=== PATIENT | male | born 1945 | race Caucasian/White ===

== ENCOUNTER → 2016-07-29 | Outpatient (CLI) | payer MEDICARE ==
--- NOTE | 2016-07-29 14:41 | REP ---
Whole body radionuclide bone scan: History: Question metastasis. Left eighth rib lesion. Comparison radiographs July 22, 2016. Technique: 22.0 mCi technetium 99m MDP is injected and standard whole body bone scan imaging is acquired. Scintigraphic findings: There is a normal distribution of skeletal tracer with uptake in bilateral kidneys and in the urinary bladder. Osteoarthritic uptake is seen in the acromioclavicular joints bilaterally as well as in the right knee. There is no abnormal rib uptake on either side. Mild arthritic uptake is seen in the left hip as well. There is an area of increased uptake in the at the angle of mandible on the left side and in the left zygomatic arch region. There is a history of recent mandibular tooth extraction on the left. 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 Impression: No abnormal rib uptake is seen. There is some osteoarthritic uptake. There is an area of increased uptake in the left zygomatic arch region of uncertain significance. Maxillofacial CT scanning could provide additional information. Otherwise no evidence of skeletal metastatic disease. Signed by Jae Gonzalez MD 07/29/2016 03:35 P
== END ==
LOC: M RAD 09:55
DX: R93.7 Abnormal findings on diagnostic imaging of other parts of musculoskeletal system (principal); Z86.008 Personal history of in-situ neoplasm of other site
CPT/HCPCS: 78306; A9503

== ENCOUNTER → 2016-08-30 | Outpatient (REF) | payer MEDICARE | LOC: M LAB REF 16:37 | DX: Z01.89 Encounter for other specified special examinations (principal) ==

== ENCOUNTER 2016-11-15 05:07 | Emergency (ER) | payer MEDICARE ==
[~2016-11-15] VITALS: Ht 175.3 cm; Wt 83.5 kg
[2016-11-15] MEDS ORDERED: SERT-155 PO (05:20)
[2016-11-15] MEDS ORDERED: VALS1TAB48 PO (05:20)
[2016-11-15] MEDS ORDERED: ROSU20TA PO (05:20)
[2016-11-15] MEDS ORDERED: METF500T PO (05:20)
[2016-11-15] MEDS ORDERED: AMLO5TAB2 PO (05:20)
[2016-11-15] MEDS ORDERED: dexameTHASONE 20 MG/5 ML VIAL (J1100) IV ONE (05:45)
[2016-11-15] MEDS ORDERED: IPRATROPIUM 0.5MG/ALBUTEROL 2.5MG INH SOL UD 3ML (DUONEB)(J7620) NEB ONE (05:45)
[2016-11-15] MEDS ORDERED: PRED20TA PO (06:09)
[2016-11-15 06:24] VITALS: BP 138/85
--- NOTE | 2016-11-15 09:19 | REP ---
CHEST, TWO VIEWS: COMPARISON: 01/05/2015. There is no evidence of acute infiltrate. The heart is normal in size. There is tortuosity of the thoracic aorta. The mediastinal silhouette is unchanged. Right basilar nodular opacity is stable. There are mild degenerative changes of the spine. IMPRESSION: No acute infiltrate. Signed by Remberto Conner MD 11/15/2016 05:16 P
== END 2016-11-15 06:26 | disposition home or self-care (01) ==
LOC: M ED 06:01
DX: J20.9 Acute bronchitis, unspecified (principal); E11.9 Type 2 diabetes mellitus without complications; I10 Essential (primary) hypertension; M54.9 Dorsalgia, unspecified; F41.9 Anxiety disorder, unspecified; Z87.891 Personal history of nicotine dependence; Z79.84 Long term (current) use of oral hypoglycemic drugs; Z79.899 Other long term (current) drug therapy; Z79.52 Long term (current) use of systemic steroids; Z91.018 Allergy to other foods
CPT/HCPCS: 71020; 96374; 99282; J1100

== ENCOUNTER → 2017-03-03 | Outpatient (CLI) | payer MEDICARE ==
[~2017-03-03] MED LIST: AMLO5TAB2 PO; CRES20TA; E-Z-GAS II EFFERVESCENT PACKET (SODIUM BICARB./CITRIC ACID/SIMETHICONE) As Ordered ONE; E-Z-HD 98% w/w 340GM SUSP BTL As Ordered ONE; E-Z-PAQUE 96% w/w SUSP 176GM BTL As Ordered ONE; METF500T13 PO; PRED20TA PO; ROSU20TA PO; SERT-155 PO; VALS1TAB48 PO
--- NOTE | 2017-03-03 19:13 | REP ---
ESOPHAGRAM: The procedure was performed by JENNA Reynolds under the direct supervision of Dr. Conner. All imaging was reviewed with Dr. Conner prior to dictation. The patient was able ingest liquid barium and air in a quantity sufficient to produce a double contrast examination. The oral and pharyngeal stages of deglutition were within normal limits. Esophageal transport was prompt and efficient. There was no evidence of esophagitis, stricture, mucosa ring or hiatal hernia. Gastroesophageal reflux was not observed on exam. IMPRESSION: Unremarkable double contrast esophagram. Fluoroscopy time 2 minutes and 4 seconds. Reviewed by JENNA Yang 03/04/2017 08:12 AEdited and Signed by Remberto Conner MD 03/04/2017 04:33 P
== END ==
LOC: M RAD 08:30
PROVIDERS: ATTEND Specialist
DX: K21.9 Gastro-esophageal reflux disease without esophagitis (principal)

== ENCOUNTER 2017-04-10 12:24 | Emergency (ER) | payer MEDICARE ==
[~2017-04-10] VITALS: Ht 175.3 cm; Wt 82.7 kg
[~2017-04-10 12:24] MED LIST changes: -CRES20TA; -E-Z-GAS II EFFERVESCENT PACKET (SODIUM BICARB./CITRIC ACID/SIMETHICONE) As Ordered ONE; -E-Z-HD 98% w/w 340GM SUSP BTL As Ordered ONE; -E-Z-PAQUE 96% w/w SUSP 176GM BTL As Ordered ONE
[2017-04-10] MEDS ORDERED: CRES20TA (12:42)
--- NOTE | 2017-04-10 14:09 | REP ---
Right foot four views: Comparisons 05/19/2003. There is joint space narrowing of the PIP and DIP articulations of the great toe MTP articulation compatible with articular cartilage atrophy as a degenerative change. There is no acute fracture. No dislocation. Diffuse demineralization is again identified. There are calcaneal plantar and Achilles spurs. Impression: No fracture or dislocation. 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 Signed by Remberto Cedeno MD 04/10/2017 02:01 P
[2017-04-10 14:27] VITALS: BP 162/76
== END 2017-04-10 14:38 | disposition home or self-care (01) ==
LOC: M ED 12:24
DX: M19.071 Primary osteoarthritis, right ankle and foot (principal); M77.31 Calcaneal spur, right foot; Z87.891 Personal history of nicotine dependence; Z79.899 Other long term (current) drug therapy; Z91.018 Allergy to other foods

== ENCOUNTER 2018-02-01 14:37 | Emergency (ER) | payer MEDICARE | END 2018-02-01 17:38 | disposition home or self-care (01) | LOC: M ED 14:37 | DX: J20.9 Acute bronchitis, unspecified (principal); E11.9 Type 2 diabetes mellitus without complications; I10 Essential (primary) hypertension; E78.5 Hyperlipidemia, unspecified; H40.9 Unspecified glaucoma; M54.9 Dorsalgia, unspecified; F41.9 Anxiety disorder, unspecified; K90.0 Celiac disease; Z91.018 Allergy to other foods; Z79.899 Other long term (current) drug therapy; Z79.84 Long term (current) use of oral hypoglycemic drugs | CPT/HCPCS: 71046 ==

== ENCOUNTER 2018-05-14 12:42 | Emergency (ER) | payer MEDICARE ==
[2018-05-14 13:31] LABS: BEDSIDE GLUCOSE 99 MG/DL (83-110)
[2018-05-14 13:50] LABS: BASO % 0.3 % (0.0-1.0); EOS # 0.1 10^3/uL (0.0-0.50); HEMATOCRIT 38.4 % (42.0-52.0); HEMOGLOBIN 13.5 g/dl (13.5-17.5); IMMATURE GRANULOCYTE % 0.4 % (0-3.0); LYMPH # 2.2 10^3/uL (1.5-4.5); LYMPH % 27.8 % (24.0-44.0); MEAN CORPUSCULAR HEMOGLOBIN 30.3 pg (27.0-33.0); MEAN CORPUSCULAR HGB CONC 35.2 g/dl (32.0-36.5); MEAN CORPUSCULAR VOLUME 86.1 fl (80.0-96.0); MONO # 0.6 10^3/uL (0.0-0.8); MONO % 7.8 % (0.0-5.0); NEUTROPHILS # 4.9 10^3/uL (1.8-7.7); NEUTROPHILS % 62.7 % (36.0-66.0); PLATELET COUNT, AUTOMATED 239 10^3/uL (150-450); RED BLOOD COUNT 4.46 10^6/uL (4.30-6.10); WHITE BLOOD COUNT 7.7 10^3/uL (4.0-10.0)
[2018-05-14] MEDS: NS 500 ML IV (13:52)
[2018-05-14 14:14] LABS: INR 1.03; PARTIAL THROMBOPLASTIN TIME 26.5 SECONDS (25.4-37.6); PROTHROMBIN TIME 13.6 SECONDS (12.1-14.4)
[2018-05-14 14:25] LABS: ALBUMIN 4.5 GM/DL (3.2-5.2); ALBUMIN/GLOBULIN RATIO 1.41 (1.00-1.93); ALKALINE PHOSPHATASE 77 U/L (45-117); ALT/SGPT 41 U/L (12-78); ANION GAP 10 MEQ/L (8-16); AST/SGOT 19 U/L (7-37); BILIRUBIN,DIRECT 0.1 MG/DL (0.0-0.2); BILIRUBIN,TOTAL 0.3 MG/DL (0.2-1.0); BLOOD UREA NITROGEN 16 MG/DL (7-18); C REACTIVE PROTEIN QUANTITATIV < 0.30 MG/DL (0.00-0.30); CALCIUM LEVEL 9.2 MG/DL (8.8-10.2); CARBON DIOXIDE LEVEL 25 MEQ/L (21-32); CHLORIDE LEVEL 104 MEQ/L (98-107); CK-MB VALUE MASS < 1.0 NG/ML (<3.6); CPK CREATINE PHOSPHOKINASE 96 U/L (39-308); CREATININE FOR GFR 0.98 MG/DL (0.70-1.30); FREE T4 1.16 NG/DL (0.76-1.46); GLOMERULAR FILTRATION RATE > 60.0 (>42); GLUCOSE, FASTING 100 MG/DL (70-100); LIPASE 148 U/L (73-393); MB/CK RELATIVE INDEX 1.04 (< OR =4); NT-PRO BNP 30 PG/ML (<125); POTASSIUM SERUM 3.8 MEQ/L (3.5-5.1); SODIUM LEVEL 139 MEQ/L (136-145); TOTAL PROTEIN 7.7 GM/DL (6.4-8.2); TROPONIN I < 0.02 NG/ML (< 0.10)
[2018-05-14 14:37] LABS: CONTROL LINE MONO INT CTR LINE PRESENT; MONO SCRN NEGATIVE (NEGATIVE)
== END 2018-05-14 15:08 | disposition home or self-care (01) ==
LOC: M ED 12:42
DX: J06.9 Acute upper respiratory infection, unspecified (principal); I10 Essential (primary) hypertension; E11.9 Type 2 diabetes mellitus without complications; K21.9 Gastro-esophageal reflux disease without esophagitis; K90.0 Celiac disease; Z87.891 Personal history of nicotine dependence
CPT/HCPCS: 71046

== ENCOUNTER 2018-07-14 07:39 | Emergency (ER) | payer MEDICARE ==
[~2018-07-14] VITALS: Ht 175.3 cm; Wt 81.8 kg
[~2018-07-14 07:39] MED LIST changes: -AMLO5TAB2 PO; +AMLO5TAB4 PO; +AUGM875T28 PO; +CRES20TA; +LOSA-4 PO; -ROSU20TA PO; +ROSU20TA4 PO
[2018-07-14 07:59] VITALS: BP 192/96
[2018-07-14] MEDS ORDERED: amLODIPine 5 MG TAB PO ONE (08:00)
[2018-07-14] MEDS ORDERED: LOSARTAN 50 MG TAB PO ONE (08:00)
[2018-07-14] MEDS ORDERED: PRED10TA2 PO (08:24)
[2018-07-14 08:28] VITALS: BP 174/89
--- NOTE | 2018-07-14 08:29 | REP ---
Clinical: Cough and congestion . Comparison: 05/14/2018 . Technique: PA and lateral. Findings: The mediastinum and cardiac silhouette are normal. The lung justin are clear and without acute consolidation, effusion, or pneumothorax. The skeletal structures are intact and normal. Impression: 1. No acute cardiopulmonary process. Electronically Signed by Froilan Murrell MD 07/14/2018 08:20 A
== END 2018-07-14 08:33 | disposition home or self-care (01) ==
LOC: M ED 07:39
DX: J06.9 Acute upper respiratory infection, unspecified (principal); I10 Essential (primary) hypertension; E11.9 Type 2 diabetes mellitus without complications; Z87.891 Personal history of nicotine dependence

== ENCOUNTER → 2018-08-17 | Outpatient (REF) | payer MEDICARE ==
[~2018-08-17] MED LIST changes: -AMLO5TAB4 PO; +AMLO5TAB6 PO; -LOSA-4 PO; +LOSA100T50 PO; +PRED10TA2 PO
[2018-08-19 13:27] LABS: PERCENT SATURATION 18.6 % (19.7-50.0)
[2018-08-20 12:19] LABS: FOLATE 4.5 NG/ML
== END ==
LOC: M LAB REF 12:58
PROVIDERS: ATTEND Family Medicine
DX: D64.9 Anemia, unspecified (principal)

== ENCOUNTER → 2019-12-10 | Outpatient (CLI) | payer MEDICARE ==
[~2019-12-10] MED LIST changes: -CRES20TA; +CRES20TA2; -ROSU20TA4 PO; +ROSU20TA5 PO; -SERT-155 PO; +SERT50TA29 PO; -VALS1TAB48 PO; +VALS1TAB68 PO
--- NOTE | 2019-12-10 10:10 | REP ---
Left lower extremity Duplex Doppler venous ultrasound: Real time compression and duplex Doppler interrogation of the left lower extremity deep venous system is performed. The left common femoral, superficial femoral and popliteal veins are fully compressible with transducer pressure and demonstrate normal spontaneous and phasic flow, without evidence of deep venous thrombosis. Impression: No evidence of deep venous thrombosis of the left lower extremity femoral popliteal venous system. Electronically Signed by Remberto Conner MD 12/10/2019 10:02 A
== END ==
LOC: M RAD 09:29
PROVIDERS: ATTEND Registered Nurse
DX: R22.42 Localized swelling, mass and lump, left lower limb (principal)

== ENCOUNTER → 2020-10-17 | Outpatient (CLI) | payer MEDICARE ==
[~2020-10-17] MED LIST changes: +AMLO1TAB24 PO; -AMLO5TAB6 PO
--- NOTE | 2020-10-18 15:52 | PFTRPT ---
Height: 69.00 Inches Weight: 182.00 Lbs BSA: 1.98 Diagnosis: R06.00 DATE: 10/17/2020 ORDERING PHYSICIAN: IMANI Mckeon Pre and post bronchodilator studies have excellent technical quality. Forced vital capacity is normal. FEV1 is in proportion. Obstructive index is therefore normal. Expiratory limit of the flow-volume loop is normal. No significant bronchodilator response is identified. Total lung capacity is normal. Residual volume is in proportion. Diffusing capacity is normal. Hemoglobin is acceptable at 16. Airway resistance and conductance are normal. IMPRESSION: Normal study. MTDD
== END ==
LOC: M CARPUL 13:37
PROVIDERS: ATTEND Physician Assistant
DX: R06.00 Dyspnea, unspecified (principal)

== ENCOUNTER → 2020-11-23 | Outpatient (CLI) | payer MEDICARE ==
[~2020-11-23] MED LIST changes: +METHACHOLINE KIT (J7674) INH ONE
--- NOTE | 2020-11-23 08:35 | PFTRPT ---
Height: 69.00 Inches Weight: 182.00 Lbs BSA: 1.98 Diagnosis: R06.00 DATE: 11/23/2020 ORDERED BY: IMANI Mckeon. QUALITY: Study of excellent technical quality. PROCEDURE: Under protocol, methacholine was administered. Even after a maximal dose of 25 mg or 188.875 CDUs, no provocation dose ever achieved. IMPRESSION: Negative methacholine challenge study. MTDD
== END ==
LOC: M CARPUL 07:34
PROVIDERS: ATTEND Physician Assistant
DX: R06.00 Dyspnea, unspecified (principal)
CPT/HCPCS: 94070; 95070; J7674

== ENCOUNTER → 2021-02-02 | Outpatient (CLI) | payer MEDICARE ==
[~2021-02-02] MED LIST changes: -METHACHOLINE KIT (J7674) INH ONE
--- NOTE | 2021-02-02 16:59 | REP ---
INDICATION: LOWER LEFT RIB PAIN. COMPARISON: Chest 02/29/2020. TECHNIQUE: Four views left ribs. FINDINGS: There is no radiographic evidence of left rib fracture or bone lesion. IMPRESSION: Negative left rib series. <Electronically signed by Remberto Conner > 02/02/21 [id number]
== END ==
LOC: M RAD 15:19
PROVIDERS: ATTEND Family Medicine
DX: R07.9 Chest pain, unspecified (principal)

== ENCOUNTER → 2021-03-05 | Outpatient (CLI) | payer MEDICARE | LOC: M LAB 16:07 | PROVIDERS: ATTEND Internal Medicine Cardiovascular Disease | DX: R06.02 Shortness of breath (principal) ==

== ENCOUNTER → 2022-02-28 | Outpatient (REF) | payer MEDICARE ==
[~2022-02-28] MED LIST changes: +LOSA100T45 PO; -LOSA100T50 PO
== END ==
LOC: M WUC 12:18
PROVIDERS: ATTEND Physician Assistant
DX: R30.0 Dysuria (principal)

== ENCOUNTER → 2023-10-27 | Outpatient (CLI) | payer MEDICARE ==
[~2023-10-27] MED LIST changes: +BARIUM SULFATE 700 MG TABLET (E-Z-DISK) As Ordered ONE; +E-Z-PAQUE 96% w/w SUSP 176GM BTL As Ordered ONE; -LOSA100T45 PO; +LOSA100T46 PO; -ROSU20TA5 PO; +ROSU20TA61 PO; +VARIBAR NECTAR 40% w/v 240ML SUSP BTL As Ordered ONE; +VARIBAR PUDDING 40% w/v 230ML TUBE As Ordered ONE
== END ==
LOC: M RAD 10:32
PROVIDERS: ATTEND Family Medicine
DX: R13.10 Dysphagia, unspecified (principal)

== ENCOUNTER 2024-06-04 08:23 | Day surgery (SDC) | payer MEDICARE ==
[~2024-06-04] VITALS: Ht 175.3 cm; Wt 79.2 kg
[~2024-06-04 08:23] MED LIST changes: +AMLO1TAB25 PO; -BARIUM SULFATE 700 MG TABLET (E-Z-DISK) As Ordered ONE; -E-Z-PAQUE 96% w/w SUSP 176GM BTL As Ordered ONE; +FINA5TAB2 PO; +FLOM0.4C39 PO; -ROSU20TA61 PO; +ROSU20TA86 PO; +SOMA350T PO; -VARIBAR NECTAR 40% w/v 240ML SUSP BTL As Ordered ONE; -VARIBAR PUDDING 40% w/v 230ML TUBE As Ordered ONE
[2024-06-04] MEDS ORDERED: LR 1,000 ML IV SCH (08:55)
[2024-06-04] MEDS ORDERED: fentaNYL 100 MCG/2 ML INJECTION As Ordered ONE (09:00)
[2024-06-04] MEDS ORDERED: MIDAZOLAM INJ 2MG/2ML VIAL As Ordered ONE (09:00)
[2024-06-04] MEDS ORDERED: LIDOCAINE 2% 100MG/5ML SDV (FOR ANES.) As Ordered ONE (09:02)
[2024-06-04] MEDS ORDERED: ONDANSETRON 4MG 2ML VIAL As Ordered ONE (09:02)
[2024-06-04] MEDS ORDERED: ROCURONIUM BROMIDE 50MG/5ML VIAL As Ordered ONE (09:02)
[2024-06-04] MEDS ORDERED: KETOROLAC 60MG 2ML VIAL As Ordered ONE (09:02)
[2024-06-04] MEDS ORDERED: SUGAMMADEX SODIUM 500 MG/5 ML VIAL (BRIDION) As Ordered ONE (09:02)
[2024-06-04] MEDS ORDERED: propofoL 200 MG/20 ML VIAL As Ordered ONE (09:02)
[2024-06-04] MEDS: ceFAZolin SOD 2 GM in IV 1 EA IV ONE (09:26)
[2024-06-04] MEDS ORDERED: HYDROmorphone HCL 2MG/ML 1ML VIAL As Ordered ONE (09:46)
[2024-06-04] MEDS ORDERED: fentaNYL 100 MCG/2 ML INJECTION IV PRN (10:40)
[2024-06-04] MEDS ORDERED: DEXTROSE 50% 50ML SYRINGE IV PRN (10:40)
[2024-06-04] MEDS ORDERED: GLUCOSE 4 GM CHEW PO PRN (10:40)
[2024-06-04] MEDS ORDERED: GLUCAGON INJ 1MG VIAL SC PRN (10:40)
[2024-06-04] MEDS ORDERED: HYDROMORPHONE HCL 0.5 MG/ 0.5 ML SYRINGE IV PRN (10:40)
[2024-06-04] MEDS ORDERED: ONDANSETRON 4MG 2ML VIAL IV PRN (10:40)
[2024-06-04] MEDS: INSULIN LISPRO (NovoLOG) PER UNIT SC PRN (10:53)
[2024-06-04] MEDS: oxyCODONE 5MG TAB PO PRN (11:46)
[2024-06-04 11:50] VITALS: BP 159/86; TEMP 97.4; O2SAT 94
[2024-06-04] MEDS ORDERED: NORCO, ANEXSIA 5/325MG TABLET (HYDROcodone/ACETAMINOPHEN) PO PRN (12:40)
== END 2024-06-04 12:35 | disposition home or self-care (01) ==
LOC: M SDC 08:23
PROVIDERS: ATTEND Surgery
DX: K42.0 Umbilical hernia with obstruction, without gangrene (principal); I10 Essential (primary) hypertension; E78.5 Hyperlipidemia, unspecified; E11.9 Type 2 diabetes mellitus without complications; N40.0 Benign prostatic hyperplasia without lower urinary tract symptoms; Z79.84 Long term (current) use of oral hypoglycemic drugs; Z79.899 Other long term (current) drug therapy; J30.2 Other seasonal allergic rhinitis; K90.41 Non-celiac gluten sensitivity; Z87.891 Personal history of nicotine dependence
CPT/HCPCS: 49592; C1781; J0665; J0690; J1100; J1171; J1815; J1885; J2250; J2405; J3010; S2900

== ENCOUNTER → 2024-08-19 | Outpatient (CLI) | payer MEDICARE | LOC: M RAD 08:36 | PROVIDERS: ATTEND Family Medicine | DX: R79.89 Other specified abnormal findings of blood chemistry (principal) ==

== ENCOUNTER → 2024-11-03 | Outpatient (CLI) | payer MEDICARE | LOC: M WUC 14:28 | PROVIDERS: ATTEND Family Medicine | DX: R10.9 Unspecified abdominal pain (principal) ==

== ENCOUNTER → 2024-11-15 | Outpatient (REF) | payer MEDICARE ==
[~2024-11-15] MED LIST changes: -FLOM0.4C39 PO; +TAMS-18 PO
[2024-11-15 13:57] LABS: C REACTIVE PROTEIN QUANTITATIV < 0.50 MG/DL (<1.0); LIPASE 43 U/L (12-53)
[2024-11-15 13:58] LABS: FERRITIN 23.5 NG/ML (10.5-307.3)
[2024-11-15 13:59] LABS: VITAMIN B12 LEVEL 444 PG/ML (211-911)
== END ==
LOC: M LAB REF 12:13
PROVIDERS: ATTEND Family Medicine
DX: D64.9 Anemia, unspecified (principal); R10.9 Unspecified abdominal pain

== ENCOUNTER 2024-11-18 07:50 | Day surgery (SDC) | payer MEDICARE ==
[~2024-11-18] VITALS: Ht 175.3 cm; Wt 77.1 kg
[~2024-11-18 07:50] MED LIST changes: +PHENYLEPHRINE 10% OPHTH SOL 5ML OD PRN
[2024-11-18] MEDS: LIDOCAINE 3.5 % 1ML OPHTH TOPICAL GEL OU ONE (08:45)
[2024-11-18] MEDS: OFLOXACIN 0.3 % (OCUFLOX) OPTH SOL 5ML OD ONE (08:45)
[2024-11-18] MEDS ORDERED: fentaNYL 100 MCG/2 ML INJECTION As Ordered ONE (08:53)
[2024-11-18] MEDS ORDERED: INSULIN LISPRO (NovoLOG) PER UNIT SC PRN (09:00)
[2024-11-18] MEDS: PHENYLEPHRINE 2.5% OPHTH SOL 2ML OD SCH (09:01)
[2024-11-18] MEDS: TROPICAMIDE 1% OPHTH SOLN 15ML OD SCH (09:01)
[2024-11-18] MEDS: CYCLOPENTOLATE 1% OPHTH SOLN 2ML BTL OD SCH (09:01)
[2024-11-18] MEDS: LIDOCAINE 1% SDV 5ML VIAL As Ordered ONE (09:48)
[2024-11-18] MEDS: CEFUROXIME 1MG/0.1ML INTRACAMERAL INJ As Ordered ONE (09:49)
[2024-11-18] MEDS: BSS IRRIG/VANCO(10MG)/TOBRA(5MG)/EPINEPH(1:1000-0.5CC)500ML BAG-ORONLY As Ordered ONE (09:49)
[2024-11-18] MEDS: VISCOAT 40-30MG/ML 0.5ML SYRINGE As Ordered ONE (09:52)
[2024-11-18 10:10] VITALS: BP 153/84; TEMP 97.2; O2SAT 97
== END 2024-11-18 10:20 | disposition home or self-care (01) ==
LOC: M SDC 07:50
PROVIDERS: ATTEND Ophthalmology
DX: E11.36 Type 2 diabetes mellitus with diabetic cataract (principal); H25.11 Age-related nuclear cataract, right eye; I10 Essential (primary) hypertension; E78.00 Pure hypercholesterolemia, unspecified; N40.0 Benign prostatic hyperplasia without lower urinary tract symptoms; F41.9 Anxiety disorder, unspecified; Z79.899 Other long term (current) drug therapy; Z79.84 Long term (current) use of oral hypoglycemic drugs; Z91.018 Allergy to other foods
CPT/HCPCS: 66984; 92015; A4649; J0697; J3010; V2788

== ENCOUNTER → 2025-01-24 | Outpatient (CLI) | payer MEDICARE ==
[~2025-01-24] MED LIST changes: -PHENYLEPHRINE 10% OPHTH SOL 5ML OD PRN; +PROHANCE 279.3MG/ML 15ML VIAL As Ordered ONE
== END ==
LOC: M RAD 12:05
PROVIDERS: ATTEND Nurse Practitioner Family
DX: K86.9 Disease of pancreas, unspecified (principal); K76.0 Fatty (change of) liver, not elsewhere classified
CPT/HCPCS: 74183; A9576

== ENCOUNTER → 2025-07-05 | Outpatient (REF) | payer MEDICARE ==
[~2025-07-05] MED LIST changes: -PROHANCE 279.3MG/ML 15ML VIAL As Ordered ONE
== END ==
LOC: M LAB REF 15:14
PROVIDERS: ATTEND Nurse Practitioner Family
DX: D3A.8 Other benign neuroendocrine tumors (principal)